=== PATIENT | female | born 1970 | race Caucasian/White ===

== ENCOUNTER 2020-02-19 14:23 | Emergency (ER) | payer OTHER ==
[~2020-02-19] VITALS: Ht 162.6 cm; Wt 77.1 kg
[2020-02-19 14:25] VITALS: BP_SYST 134
[2020-02-19 16:04] VITALS: BP_SYST 131
== END 2020-02-19 16:04 | disposition home or self-care (01) ==
LOC: SED 14:23
DX: U07.1 COVID-19 (principal); J20.8 Acute bronchitis due to other specified organisms; J96.00 Acute respiratory failure, unspecified whether with hypoxia or hypercapnia
CPT/HCPCS: 99281